=== PATIENT | female | born 1970 | race Two or more races ===

== ENCOUNTER → 2024-12-14 | Outpatient (CLI) | payer OTHER, MEDICAID ==
[~2024-12-14] VITALS: Ht 170.2 cm; Wt 54.4 kg
[~2024-12-14] MED LIST: CLON0.5T3 GT; FERR325T20 PO; FOLITAB22 OR; LACO100T PO; LAMO200T2 PO; METH2.5T PO; OMEP20TA PO; PREG100C PO
[2024-12-14 11:58] LABS: Urine Bacteria None Seen /hpf (None Seen)
[2024-12-14 12:10] LABS: Basophils # (auto) 0.1 10 ^3/uL (0-0.2); Basophils % (auto) 1.5 % (0.0-2.0); Eosinophils # (auto) 0 10 ^3/uL (0-0.8); Eosinophils % (auto) 0.4 % (0.0-7.0); Hematocrit 34.2 % (36.0-46.0); Hemoglobin 11.6 g/dL (12.2-16.2); Lymphocytes # (auto) 1.2 10 ^3/uL (0.4-5.4); Lymphocytes % (auto) 24.8 % (10.0-50.0); Mean Corpuscular Hemoglobin 37.6 pg (28.0-32.0); Mean Corpuscular Hgb Conc. 33.9 g/dL (32.0-36.0); Monocytes # (auto) 0.3 10 ^3/uL (0-1.3); Neutrophils # (auto) 3.2 10 ^3/uL (1.6-8.6); Neutrophils % (auto) 67.3 % (37.0-80.0); Nucleated Red Blood Cells % 0.1 %; Platelet Count (auto) 185 10^3/uL (140-450); Red Blood Cells 3.08 10^6/uL (4.0-5.20); White Blood Cell 4.7 10^3/uL (4.4-10.8)
[2024-12-14 12:19] LABS: INR 1.09 (0.9-1.15); Partial Thromboplastin Time 34.5 SEC (24.5-34.5); Prothrombin Time 11.5 sec (9.3-11.8)
[2024-12-14 12:33] LABS: Alanine Aminotransferase 13 U/L (7-40); Albumin 4.4 g/dL (3.2-4.8); Alkaline Phosphatase 80 U/L (46-116); Anion Gap 1 (5-15); BUN/Creatinine Ratio 15.4 (10.0-20.0); Bilirubin, Total 0.7 mg/dL (0.2-1.0); Blood Urea Nitrogen 12 mg/dL (9-23); Calcium 9.6 mg/dL (8.7-10.4); Carbon Dioxide 26 mmol/L (20-31); Chloride 103 mmol/L (98-107); Glucose 81 mg/dL (74-106); Potassium 4.3 mmol/L (3.5-5.1); Total Protein 6.4 g/dL (5.7-8.2)
[2024-12-14 12:37] LABS: Aspartate Aminotransferase 12 U/L (13-40); Sodium 130 mmol/L (136-145)
[2024-12-14 12:54] LABS: Urine Blood Negative /uL (Negative); Urine Clarity Clear (Clear); Urine Color Colorless (Yellow); Urine Protein, UAD Negative (Negative); Urine Specific Gravity 1.006 (1.001-1.035); Urine Squamous Epithelial Cell FEW /hpf (<5); Urine Urobilinogen Normal (Negative); Urine WBC 1 /HPF (0-5); Urine pH 6.5 (5.0-9.0)
== END | disposition home or self-care (01) ==
LOC: LAB 11:42 → EDSTATUS 12-15 13:15
PROVIDERS: ATTEND Internal Medicine Gastroenterology
DX: Z01.812 Encounter for preprocedural laboratory examination (principal); R19.5 Other fecal abnormalities; R07.9 Chest pain, unspecified
CPT/HCPCS: 36415; 80053; 81001; 85025; 85610; 85730